=== PATIENT | female | born 1985 ===

== ENCOUNTER 2018-06-12 13:35 | Emergency (ER) | payer MEDICAID ==
--- NOTE | 2018-06-12 17:01 | EDPHY ---
H & P Stated Complaint: Low back and left hip pain since chiropacter care. Time Seen by Provider: 06/12/18 16:07 HPI/ROS: CHIEF COMPLAINT: Left leg numbness HISTORY OF PRESENT ILLNESS: 33-year-old female presents with left leg numbness. Onset of low back pain few weeks ago. She saw a chiropractor multiple times and after 1 of the sessions, she developed tingling down the left leg. The tingling has progressed and now her leg feels numb. Associated with left hip and buttock pain. The pain is moderate and somewhat relieved with ibuprofen. MRI of the lumbar spine and left hip ordered by her PCP, but has not yet obtain MRI. Requests MRI to be done today. REVIEW OF SYSTEMS: complete 10 point ROS reviewed and is negative except for the noted elements in the HPI - Personal History Current Tetanus Diphtheria and Acellular Pertussis (TDAP): Yes Tetanus Vaccine Date: 2005 - Medical/Surgical History Hx Asthma: No Hx Chronic Respiratory Disease: No Hx Diabetes: No Hx Cardiac Disease: No Hx Renal Disease: No Hx Cirrhosis: No Hx Alcoholism: No Hx HIV/AIDS: No Hx Splenectomy or Spleen Trauma: No Other PMH: Spinal injury. Concussion. Depression. - Social History Smoking Status: Never smoked - Physical Exam Exam: General Appearance: Alert, pleasant Eyes: Pupils equal and round, no conjunctival pallor or injection ENT, Mouth: Mucous membranes moist Neck: Normal inspection Respiratory: Lungs are clear to auscultation Cardiovascular: Regular rate and rhythm Gastrointestinal: Abdomen is soft and nontender Neurological: A&O, motor 5/5 including dorsiflexion of the ankle and 1st toe, patellar DTRs 2+ bilaterally, decreased sensation to light touch on the medial aspect of the left lower leg Skin: Warm and dry Extremities: Negative straight leg raise, normal inspection Vascular: 2+ pedal pulses Psychiatric: Mood and affect normal Constitutional: Initial Vital Signs Temperature (C) 36.7 C 06/12/18 13:56 Heart Rate 84 06/12/18 13:56 Respiratory Rate 18 06/12/18 13:56 Blood Pressure 114/86 H 06/12/18 13:56 O2 Sat (%) 98 06/12/18 13:56 O2 Delivery Mode Room Air Allergies/Adverse Reactions: Penicillins Allergy (Severe, Verified 06/16/11 14:41) Anaphylaxis Home Medications: Medication Instructions Recorded methylPREDNISolone [Medrol Dose 1 each PO AD #1 ea 06/12/18 Mehdi] Medical Decision Making - Diagnostics Imaging Results: Lumbar Spine MRI 06/12/18 16:44 Impression: 1. There is mild degenerative disk disease at L1-L2 with some desiccation and broad-based circumferential disk bulging, but no significant central canal or neural foraminal stenosis to explain the patient's left radicular symptoms. 2. There is an incompletely-imaged 3.8 x 3.7 x 4.1 cm right adnexal cystic structure. Dedicated pelvic sonography is recommended for further assessment. Findings were discussed with ROSALES RICHEY MD at 18:44, on 06/12/2018. MRI left hip: NAD Imaging: Discussed imaging studies w/ casino controller Radiologist ED Course/Re-evaluation: This pt presents with sx c/w left sided sciatica, worsening and now with neurologic sx (numbness). Difficulty obtaining out pt MRI, which prompted her visit today. At her request, MRI lumbar spine and left hip obtained. MRI reveals a mild L1-2 bulging disc, though no evidence for acute disc herniation. Will place pt on a Medrol dose pack. f/u with Dr. Hernandez in the office. Differential Diagnosis: includes though not limited to acute disc herniation, sciatica, spinal infection , hip infection, DJD Departure - Departure Disposition: Home, Routine, Self-Care Clinical Impression: Paresthesia of left leg Condition: Good Instructions: Paresthesia (ED) Additional Instructions: The MRI of your left hip and pelvis reveals normal-appearing bones. The MRI of your lumbar spine shows a small disc bulging at L1/2. You also have a right ovarian cyst, 4 cm and diameter. You will need a follow- up pelvic ultrasound. Take the Medrol dose pack as prescribed. Return for worsening symptoms or any concerns. Referrals: David-Jessi Carias MD [Primary Care Provider] - As per Instructions ( Call to make an appointment.) Prescriptions: methylPREDNISolone [Medrol Dose Mehdi] 1 each PO AD #1 ea
[2018-06-12 19:10] VITALS: BP 111/74
== END 2018-06-12 19:34 | disposition home or self-care (01) ==
DX: M51.16 Intervertebral disc disorders with radiculopathy, lumbar region (principal); N83.291 Other ovarian cyst, right side; F32.9 Major depressive disorder, single episode, unspecified; Z88.0 Allergy status to penicillin

== ENCOUNTER 2018-08-03 19:01 | Emergency (ER) | payer MEDICAID ==
--- NOTE | 2018-08-03 19:59 | EDPHY ---
General Time Seen by Provider: 08/03/18 19:03 Narrative: CLINICAL IMPRESSION: Chronic intermittent anxiety, chronic back pain ASSESSMENT/PLAN: 33-year-old female presents to the emergency department by EMS complaining of having a panic attack. Patient has a very long history, please see HPI for full details. She has been struggling with chronic intermittent headaches as well as chronic back pain following several concussions dating back to 2008 as well as "botched chiropractic adjustments" as early as 2015. She has seen numerous vice president medical affairs for this, is currently established with Neurology, [facility], primary care, and Psychiatry. She started an antidepressant 3 days ago and feels it is making her anxiety and depression worse. She attributes her depression to her chronic pain and headaches. She reportedly had a normal MRI scan of her brain just last week but has a order for a repeat MRI with and without contrast. She has no history of new trauma or fall, has no focal neurological deficits on exam, no complaints of groin anesthesia, bowel or bladder incontinence, urinary retention, gait intolerance. She does not feel suicidal or homicidal. She does not wish to talk to our TLC provider. She is hesitant to take benzodiazepines because she feels they will make her anxiety worse. I do not believe this patient requires an emergent CT brain or emergent MRI of the thoracic spine. I have offered her a prescription for a small amount of Ativan to use at home as she still needs to get back to her vehicle which is parked in [facility]. I encouraged her to contact her primary psychiatrist to discuss her depression management. I have referred her to Neurosurgery. Warning signs return to ED sooner were outlined in person and discharge papers. I spent approximately 35 min in discussion with the patient at bedside. DIFFERENTIAL DX: Differential includes but not limited to, acute/chronic psychosis, severe depression, suicidal or homicidal ideations, grave disability, failure to thrive , medication noncompliance, medication side effect, alcohol intoxication and illicit drug use, metabolic disturbance, electrolyte imbalance, chronic pain CHIEF COMPLAINT: Panic HPI: 33-year-old female presents to the emergency department by EMS after she allegedly call the ambulance feeling panicked while driving home [employer]. Patient reports she has struggled with depression ever since experiencing several past concussions dating back to 2008. Her most recent concussion was in October 2017. She has also struggled with chronic neck and back pain secondary to "a botched chiropractic adjustment". Patient has seen numerous specialists and is currently established with a neurologist for chronic headaches, [facility] for chronic back pain, psychiatry for depression, Orthopedics for leg pain, and also has a variety of holistic practitioners including acupuncture , massage therapy, and physical therapy. She reports to me that she had a normal MRI scan of her brain recently given persistent confusion related to concussions. She reportedly has another MRI scheduled. She has also had MRI of the lumbar spine as recently in June this year. She denies any recent trauma or injury. She started a new antidepressant [address] Sepulveda and feels this is making her anxiety worse. She has decided to stop taking this. She feels that benzodiazepines also make her anxiety worse although she has only tried Valium in the past. She attempted to contact her psychiatrist jon however he is in [place]. She reports no severe or sudden onset thunderclap headache tonight, no dizziness, vertigo, acute vision or hearing changes. She denies saddle anesthesia, bowel or bladder incontinence, urinary retention, paresthesias to arms or hands, and no fevers or chills. She does not abuse IV drugs. She feels depressed because she can no longer participate and in the of the activity she used to perform including [employer], rock climbing and hiking. She is currently living with her parents because she cannot "take care of herself". She is not feeling suicidal or homicidal and does not wish to speak to anyone [facility] about her depression. She is hesitant to take benzodiazepines and is more concerned that there is something " seriously wrong with a potential burst disc in my back". PAST MEDICAL HISTORY: Depression, anxiety, chronic back pain, chronic headaches See triage summary and nurse notes for addition applicable history Pertinent Past Surgical History: Ortho surgery Family History: None reported Social History: Nonsmoker does not drink alcohol or use illicit drugs REVIEW OF SYSTEMS: A full 10 point review of systems was negative except for those mentioned in HPI. PHYSICAL EXAM: General Appearance: Alert, oriented, anxious, very talkative, pressured speech pattern, well hydrated, non-toxic appearing, VSS, no hypoxia. HEENT: TMs are clear bilaterally no perforation or FB, no injection, no evidence of serous or mucopurulent otitis. Oropharynx clear is no erythema or exudates, no tonsillar hypertrophy or asymmetry. Dentition without abnormality. Eyes: PERRLA, no acute vision change, nystagmus, swelling, discharge, pain or photosensitivity. Conjunctiva pink, no pallor or injection Neck: Supple, nontender, no lymphadenopathy, no midline pain, FROM, no meningismus. Respiratory: There are no retractions, lungs are clear to auscultation. Cardiac: Regular rate and rhythm, no murmurs or gallops. Musculoskeletal. Full range of motion of both legs. No lower extremity paresthesias. No reported saddle anesthesia. Patellar DTRs 2+ bilaterally MEDICAL DECISION MAKING: Patient was seen independently. Secondary supervising physician at time of evaluation was: Dr. Jacobson. Diagnosis: Acute stress reaction, depression, chronic neck and back pain. New, requires workup Summary: See Assessment and Plan for summary of ED visit Patient Progress: Stable for discharge. - History Smoking Status: Never smoked - Objective Vital Signs: Initial Vital Signs Temperature (C) 36.5 C 08/03/18 19:07 Heart Rate 70 08/03/18 19:07 Respiratory Rate 20 08/03/18 19:07 Blood Pressure 141/97 H 08/03/18 19:07 O2 Sat (%) 97 08/03/18 19:07 O2 Delivery Mode Room Air Allergies/Adverse Reactions: Penicillins Allergy (Severe, Verified 08/03/18 19:07) Anaphylaxis Home Medications: Medication Instructions Recorded methylPREDNISolone [Medrol Dose 1 each PO AD #1 ea 06/12/18 Mehdi] LORazepam [Ativan] 1 tab PO BID PRN #6 tab 08/03/18 Medications Given: Discontinued Medications Lorazepam (Ativan) 1 mg PO EDNOW ONE Stop: 08/03/18 20:44 Last Admin: 08/03/18 20:46 Dose: 1 mg Departure - Departure Disposition: Home, Routine, Self-Care Clinical Impression: Panic attack as reaction to stress Condition: Good Instructions: Panic Disorder (ED) Additional Instructions: DISCHARGE INSTRUCTIONS FROM YOUR DOCTOR Thank you for visiting our emergency department today. You were treated by a physician cable splicer assistant today and your case was reviewed with our ED Attending physician. Please keep in mind that discharge from the emergency department does not mean that there is nothing wrong - it simply means that we have not identified an emergency condition that requires further evaluation or treatment in the hospital. You should always plan to follow up with primary care for re- evaluation of your condition in the next 2-3 days. If you have been referred to a specialist, please call as soon as possible (today or tomorrow) to schedule your follow up appointment at the appropriate time. WE DO NOT PERFORM ROUTINE MRI SCANS FOR CHRONIC BACK PAIN IN THE EMERGENCY DEPARTMENT. A REFERRAL TO NEUROSURGERY WAS PROVIDED. PLEASE CONTACT YOUR NEUROLOGIST AND [facility] TO SEE IF YOU CAN MOVE UP THE APPOINTMENT FOR YOUR MRI OF HER BRAIN. A SMALL AMOUNT OF ATIVAN WAS GIVEN TO HELP WITH ANXIETY AND TO HELP YOU SLEEP UNTIL YOU CAN DISCUSS YOUR DEPRESSION WITH YOUR PSYCHIATRIST WHEN HE RETURNS. I OFFERED EVALUATION WITH OUR PSYCH TRIAGE TEAM TODAY BUT YOU HAVE DECLINED. PLEASE RETURN TO THE EMERGENCY DEPARTMENT IMMEDIATELY IF YOU FEEL UNSAFE, SUICIDAL OR HOMICIDAL, HAVE NEW OR WORSENING BACK PAIN WITH HIGH FEVERS, BOWEL OR BLADDER INCONTINENCE, URINARY RETENTION, NUMBNESS TO HER GROIN, OR ANY OTHER CONCERNS. People present with illnesses and injuries in different ways, and it is always possible that we have missed something. You may always return for re-evaluation if symptoms worsen or if they are not improving or if you develop new/different symptoms. Again, thank you for choosing our emergency department. We hope that you feel better. Referrals: Patient,NotPresent [Unknown] - As per Instructions Allie King PAC [Physician Recovery Coordinator] - 5-7 days, call for appt. Prescriptions: LORazepam [Ativan] 1 tab PO BID PRN #6 tab PRN Reason: Anxiety
[2018-08-03] MEDS ORDERED: LORazepam 1 MG TAB PO ONE (20:43)
[2018-08-03 21:10] VITALS: BP 141/99
== END 2018-08-03 21:00 | disposition home or self-care (01) ==
LOC: EDBD → EDUNIT#
DX: F41.0 Panic disorder [episodic paroxysmal anxiety] (principal); F32.9 Major depressive disorder, single episode, unspecified; M54.5 Low back pain; M54.2 Cervicalgia; R51 Headache; G89.29 Other chronic pain; Z88.0 Allergy status to penicillin